=== PATIENT | male | born 1960 | race Caucasian/White ===

== ENCOUNTER → 2023-09-21 16:57 | Outpatient (REF) | payer OTHER, SELFPAY | LOC: HWRAD 16:57 | PROVIDERS: ATTENDING PHYSICIAN Family Medicine | DX: R06.02 Shortness of breath (principal) | CPT/HCPCS: 71046 ==

== ENCOUNTER → 2025-02-14 16:26 | Outpatient (REF) | payer OTHER, SELFPAY | LOC: RAD 16:26 | PROVIDERS: ATTENDING PHYSICIAN Family Medicine | DX: R06.02 Shortness of breath (principal) | CPT/HCPCS: 71046 ==